=== PATIENT | male | born 1950 | race Caucasian/White ===

== ENCOUNTER 2024-08-28 06:49 | Day surgery (SDC) | payer MEDICARE ==
[2024-08-20 14:33] LABS: BASOPHILS % (AUTO) 0.5 % (0-1); EOSINOPHILS # (AUTO) 0.1 X10'3 (0-0.9); EOSINOPHILS % (AUTO) 1.7 % (0-6); LYMPHOCYTES # (AUTO) 1.1 X10'3 (1.1-4.8); LYMPHOCYTES % (AUTO) 21.2 % (21-51); MEAN CORPUSCULAR HEMOGLOBIN 29.7 PG (27.0-31.0); MEAN CORPUSCULAR HGB CONC 33.8 g/dL (33.0-36.5); MEAN PLATELET VOLUME 7.3 FL (7.4-10.4); MONOCYTES # (AUTO) 0.5 X10'3 (0-0.9); MONOCYTES % (AUTO) 9.7 % (2-12); NEUTROPHILS # (AUTO) 3.4 X10'3 (1.8-7.7); NEUTROPHILS % (AUTO) 66.9 % (42-75); PRE OP HEMATOCRIT 35.6 % (42.0-52.0); PRE OP PLATELET COUNT 201 X10'3 (140-440); PRE OP WHITE BLOOD COUNT 5.1 10'3 (4.8-10.8); RED BLOOD COUNT 4.04 X10'6 (4.70-6.10)
[2024-08-20 14:36] LABS: BILIRUBIN,URINE NEGATIVE (Neg); CLARITY,URINE CLEAR (Clear); COLOR,URINE YELLOW (Yellow); GLUCOSE, URINE >=1000 mg/dl (Neg); KETONES,URINE NEGATIVE (Neg); LEUKOCYTE ESTERASE ,URINE NEGATIVE (Neg); NITRITES, URINE NEGATIVE (Neg); OCCULT BLOOD,URINE NEGATIVE (Neg); PROTEIN,URINE NEGATIVE (Neg); UROBILINOGEN,URINE 0.2 E.U/dL (0.2-1.0)
[2024-08-20 14:40] LABS: UA COLLECTION TYPE CLN CATCH MIDSTREAM
[2024-08-20 14:49] LABS: WBC,URINE 0-4 /HPF (0-4)
[2024-08-20 14:50] LABS: ALBUMIN 3.5 G/DL (3.4-5.0); ALBUMIN/GLOBULIN RATIO 1.1 (1.1-1.5); ALKALINE PHOSPHATASE 82 IU/L (46-116); BLOOD UREA NITROGEN 24 MG/DL (7-18); CALCIUM 8.9 MG/DL (8.5-10.1); CHLORIDE 106 MMOL/L (99-107); PRE OP ALT 25 U/L (30-65); PRE OP ANION GAP 7 (8-16); PRE OP AST 23 U/L (10-37); PRE OP BILIRUB, TOTAL 0.3 MG/DL (0.0-1.0); PRE OP GLUCOSE 110 MG/DL (70-104); PRE OP POTASSIUM 3.6 MMOL/L (3.4-5.1); PRE OP SODIUM 142 MMOL/L (135-145); TOTAL CARBON DIOXIDE 29.5 MMOL/L (24-32); TOTAL PROTEIN 6.8 G/DL (6.4-8.2); eGFR 42 ML/MIN
[2024-08-20 14:51] LABS: BACTERIA,URINE NONE SEEN /HPF (Neg); MUCUS STRANDS NONE SEEN /LPF (Neg); RBC,URINE NONE SEEN /HPF (0-2); SQUAMOUS EPITHELIAL CELL,UR FEW /LPF (FEW)
[2024-08-28] VITALS (10 sets, daily range): BP systolic 134–152; BP diastolic 60–80; PULSE 58–75; RESP 12–16; TEMP 97.4; O2SAT 93–99
[~2024-08-28] VITALS: Ht 188 cm; Wt 108.0 kg
[~2024-08-28 06:49] MED LIST: CO Q-10; EMPA10TA PO; EZET10TA48 PO; FLO0.4C PO; HYDR25TA4 PO; IRON; LOSA100T58 PO; NAC; OMEG-166 PO; OMEP40CA21 PO; ONE-A-DAY; PREG75CA76 PO; ROSU40TA89 PO; SEMA1PEN3 SQ; SUPER B COMPLEX; VIT B12; ceFAZolin 2gm in dextrose, iso 50 ML IV ONE; famotidine 20mg tablet PO ONE
[2024-08-28] MEDS: ringers solution, lacted 1,000 ML IV SCH (07:45)
[2024-08-28] MEDS ORDERED: BUPIVAcaine 2.5mg/ml inj 50ml vial (contains preservative) ONE (09:25)
[2024-08-28] MEDS ORDERED: sevoflurane 250ml liquid IH ONE (10:24)
[2024-08-28] MEDS ORDERED: midazolam 1 mg/ML 2ml injection ONE (10:29)
[2024-08-28] MEDS ORDERED: ondansetron/PF 4mg/2ml inj ONE (10:54)
[2024-08-28] MEDS ORDERED: propofol inj 20 ML IV ONE (10:54)
[2024-08-28] MEDS ORDERED: fentaNYL /PF 50mcg/ml 5ml ampule ONE (10:54)
[2024-08-28] MEDS ORDERED: dexamethasone sod phosphate 4mg/ml inj. ONE (10:54)
[2024-08-28] MEDS ORDERED: ROPIVAcaine 0.5% (5mg/ml) 30ml vial ONE (10:55)
[2024-08-28] MEDS ORDERED: 0.9 % SODIUM CHLORIDE 10 ML VIAL ONE (10:55)
[2024-08-28] MEDS ORDERED: LIDOcaine 2% (20mg/ml) 5ml vial ONE (10:55)
[2024-08-28] MEDS ORDERED: ePHEDrine 50MG/ML INJ. ONE (11:03)
[2024-08-28] MEDS ORDERED: bacitracin 15gm ointment TP ONE (12:12)
[2024-08-28] MEDS ORDERED: meperidine/PF 25mg/ml syringe IV PRN ×3 (12:30)
[2024-08-28] MEDS ORDERED: labetalol 20mg/4ml (5mg/ml) syringe IV PRN (12:30)
[2024-08-28] MEDS ORDERED: ringers solution, lacted 1,000 ML IV SCH (12:30)
[2024-08-28] MEDS ORDERED: proCHLORperazine 10 MG/2 ml inj IV PRN (12:30)
[2024-08-28] MEDS ORDERED: morphine 4 MG/ML inj SYRINge IV PRN (12:30)
[2024-08-28] MEDS ORDERED: ondansetron/PF 4mg/2ml inj IV PRN (12:30)
[2024-08-28] MEDS ORDERED: morphine 2 MG/ML inj. syringe IV PRN (12:30)
[2024-08-28] MEDS ORDERED: hydrALAZINE 20mg/ml inj. IV PRN (12:30)
[2024-08-28] MEDS ORDERED: acetaminophen 1,000mg/100ml IV 100 ML IV PRN (12:30)
== END 2024-08-28 13:47 | disposition home or self-care (01) ==
LOC: PAS 06:49
PROVIDERS: ATTEND Podiatrist Foot & Ankle Surgery
DX: M19.071 Primary osteoarthritis, right ankle and foot (principal); Z79.899 Other long term (current) drug therapy; M21.6X1 Other acquired deformities of right foot; M65.871 Other synovitis and tenosynovitis, right ankle and foot; M77.51 Other enthesopathy of right foot and ankle; K21.9 Gastro-esophageal reflux disease without esophagitis; E78.5 Hyperlipidemia, unspecified; G47.33 Obstructive sleep apnea (adult) (pediatric); I12.9 Hypertensive chronic kidney disease with stage 1 through stage 4 chronic kidney disease, or unspecified chronic kidney disease; N18.9 Chronic kidney disease, unspecified; S96.811A Strain of other specified muscles and tendons at ankle and foot level, right foot, initial encounter; X58.XXXA Exposure to other specified factors, initial encounter; Y93.89 Activity, other specified; Y92.89 Other specified places as the place of occurrence of the external cause; Y99.8 Other external cause status; G89.18 Other acute postprocedural pain
CPT/HCPCS: 27641; 27690; 27696; 28120; 29898; 36415; 64445; 64447; 80053; 81001; 82948; 85025; A4215; A4618; A6222; A6402; A7000; C1713; J0690; J0735; J1100; J2003; J2250; J2405; J2704; J2795; J3010; J3490; J7030; J7120; Z7506; Z7508; Z7512; Z7610; A6449